=== PATIENT | female | born 1965 | race Caucasian/White ===

== ENCOUNTER 2017-11-11 06:56 | Day surgery (SDC) | payer BC ==
[2017-11-10 10:11] VITALS: BMI 21.4
[~2017-11-11 06:56] MED LIST: LACTATED RINGERS 1,000 ML IV SCH
[2017-11-11 07:12] VITALS: RESP 18; TEMP 98.3
[2017-11-11] MEDS ORDERED: LACTATED RINGERS 1,000 ML IV ONE ×4 (07:14)
[2017-11-11] MEDS ORDERED: PROPOFOL 10 MG/ML 20 ML VIAL IV ONE (07:52)
[2017-11-11] MEDS ORDERED: GLUCAGON 1 MG/ML VIAL ONE (07:52)
[2017-11-11] MEDS ORDERED: LIDOCAINE 1% INJ 10MG/ML (20 ML MDV) ONE (07:52)
--- NOTE | 2017-11-11 08:52 | P.OP ---
Date of Procedure: 11/11/17 Preoperative Diagnosis: Screening colonoscopy Postoperative Diagnosis: Multiple polyps removed, internal hemorrhoids Procedure(s) Performed: Colonoscopy with polypectomy Anesthesia: MAC Surgeon: Suzanne Rivera Estimated Blood Loss (ml): 0 IV fluids (ml): 800 Pathology: other (Colon polyps 6) Condition: stable Disposition: PACU Indications for Procedure: Screening colonoscopy Operative Findings: Multiple polyps four right colon, two at 70 cm, one rectosigmoid, 1 rectum Description of Procedure: Patient was taken to the endoscopy suite and following sedation rectal exam was performed. Patient was noted to have a posterior external skin tag. Patient was noted to have good sphincter tone no masses. Colonoscope was passed through the anus into the rectum. Was passed through the sigmoid colon up to splenic flexure transverse colon hepatic flexure right colon down to the area of the cecum. Circumferential observation mucosa revealed 4 polyps in the right colon. All 4 were removed with snare polypectomy. 2 retrieved 1 was not retrieved it was very small and the last one was burned and not retrieved. As the scope continued to be withdrawn and 2 additional polyps were seen at 70 cm. Both were removed and retrieved with snare polypectomy. The scope continued to be withdrawn and the additional polyp was seen at the rectosigmoid junction which was removed with snare polypectomy and retrieved. The scope was brought down into the rectum where a at final polyp was identified and this was removed with snare polypectomy and retrieved. The scope was retroflexed internal hemorrhoids identified. Impression/plan: 1. Multiple polyps as noted of foreign the right colon to removed and retrieved 1 removed and formulated not retrieved and was not retrieved to a 70 cm both retrieved with the rectosigmoid retrieved one in the rectum retrieved 2. Internal hemorrhoids 3. External posterior skin tag Plan: 1. Await results of pathology on polyps would recommend repeat scope in 6 months to 1 year secondary to the multiple polyps 2. Conservative management of hemorrhoids
--- NOTE | 2017-11-11 08:53 | P.DS ---
Providers Attending physician: Suzanne Rivera Primary care physician: Stated None Plan - Discharge Summary New Discharge Prescriptions: No Action ALPRAZolam [Xanax] 0.5 mg PO QID PRN PRN Reason: Anxiety Bisoprolol-Hctz 2.5-6.25 mg [Ziac 2.5-6.25 MG] 1 each PO DAILY Acetaminophen-Codeine 300-30mg [Tylenol w/codeine #3] 1 each PO Q4H PRN #20 tablet PRN Reason: Pain Ibuprofen [Motrin] 600 mg PO Q8HR PRN #30 tab PRN Reason: Pain Solodyn 65 mg PO DAILY Spironolactone 50 mg PO DAILY Discharge Medication List ALPRAZolam [Xanax] 0.5 mg PO QID PRN 04/16/14 [History] Acetaminophen-Codeine 300-30mg [Tylenol w/codeine #3] 1 each PO Q4H PRN #20 tablet 04/16/14 [Rx] Bisoprolol-Hctz 2.5-6.25 mg [Ziac 2.5-6.25 MG] 1 each PO DAILY 04/16/14 [History ] Ibuprofen [Motrin] 600 mg PO Q8HR PRN #30 tab 04/16/14 [Rx] Solodyn 65 mg PO DAILY 11/10/17 [History] Spironolactone 50 mg PO DAILY 11/10/17 [History] Follow up Appointment(s)/Referral(s): Suzanne Rivera MD [STAFF PHYSICIAN] - 1 Week Activity/Diet/Wound Care/Special Instructions: Do not drive today Discharge Disposition: HOME SELF-CARE
[2017-11-11 09:51] VITALS: BP 123/64; PULSE 68
--- NOTE | 2017-11-14 01:19 | CDI ---
Outpatient Documentation Clarification Form Date: 11/14/2017 CDS/Telecommunications Switch Technician Name: Mike Melissa Phone: If any questions, call [facility] [employer] at [phone] Patient Name: Valerie Norman Admit Date: 11/11/2017 Discharge Date: 11/11/2017 ATTENTION: The [facility] Coding Staff appreciate your assistance in clarifying documentation. Please respond to the clarification below the line at the bottom and electronically sign. The [facility] Coding staff will review the response and follow-up if needed. Please note: Queries are made part of the Legal Health Record. If you have any questions, please contact the [employer]. Dear Dr. Rivera, Operative report states colonoscopy with snare polypectomy was performed. Two polyps were excised at 70 cm. Based on your clinical opinion please mention which anatomical location of colon represent 70cm Thank you for your kind consideration. the lesions were believed to be at the distal transverse colon or near the hepatic flexure. MTDD
== END 2017-11-11 10:24 | disposition home or self-care (01) ==
LOC: ORWHC2ENDO 06:56
PROVIDERS: ATTEND Surgery
DX: Z12.11 Encounter for screening for malignant neoplasm of colon (principal); D12.2 Benign neoplasm of ascending colon; D12.3 Benign neoplasm of transverse colon; D12.7 Benign neoplasm of rectosigmoid junction; I10 Essential (primary) hypertension; D12.8 Benign neoplasm of rectum; F41.9 Anxiety disorder, unspecified; K64.8 Other hemorrhoids; L91.8 Other hypertrophic disorders of the skin; Z91.040 Latex allergy status; Z79.1 Long term (current) use of non-steroidal anti-inflammatories (NSAID); Z79.899 Other long term (current) drug therapy; Z83.71 Family history of colonic polyps; Z79.891 Long term (current) use of opiate analgesic
CPT/HCPCS: 88305; 45385; J1610; J2001; J2704

== ENCOUNTER → 2018-08-11 | Outpatient (CLI) | payer BC ==
--- NOTE | 2018-08-12 07:20 | BD ---
EXAMINATION TYPE: Axial Bone Density DATE OF EXAM: 08/11/2018 COMPARISON: NONE CLINICAL HISTORY: Height: 5 FT 7 1/2 IN Weight: 134 FRAX RISK QUESTIONS: RISK FACTORS HISTORY OF: Active: YES Postmenopausal woman: PART HYST AGE 50 MEDICATIONS: Additional Medications: XANAX, FLORCET FOR MIGRAINES, BISOPROLOL HCTZ, SPIRONOLACTONE , SOLODYN FOR ACNE Additional History: EXAM MEASUREMENTS: Bone mineral densitometry was performed using the [employer] System. Bone mineral density as measured about the Lumbar spine is: ----- L1-L4(G/cm2): 1.253 T Score Values are as follows: ----- L2: 0.1 ----- L3: 1.0 ----- L4: 1.0 ----- L1-L4: 0.6 BASELINE Bone mineral density about the R hip (g/cm2): 0.945 Bone mineral density about the L hip (g/cm2): 0.986 T Score values are as follows: -----R Neck: -0.7 -----L Neck: -0.4 -----R Total: -1.2 -----L Total: -0.8 BASELINE IMPRESSION: No evidence for osteoporosis or osteopenia. NOTE: T-SCORE=SD OF THE YOUNG ADULT MEAN.
== END | disposition home or self-care (01) ==
LOC: RADBDWWP 16:26
PROVIDERS: ATTEND Family Medicine
DX: Z13.820 Encounter for screening for osteoporosis (principal); Z78.0 Asymptomatic menopausal state
CPT/HCPCS: 77080

== ENCOUNTER 2019-02-17 09:33 | Day surgery (SDC) | payer BC ==
--- NOTE | 2019-02-17 07:56 | P.GSHP ---
History of Present Illness H&P Date: 02/17/19 CHIEF COMPLAINT: Colon screen HISTORY OF PRESENT ILLNESS: The patient is a 53-year-old female who presents for colon screen. Lower endoscopy was offered for further evaluation and management. PAST MEDICAL HISTORY: Please see list. PAST SURGICAL HISTORY: Please see list. MEDICATIONS: Please see list. ALLERGIES: Please see list. SOCIAL HISTORY: No illicit drug use FAMILY HISTORY: No reports of Crohn disease or ulcerative colitis. REVIEW OF ORGAN SYSTEMS: CONSTITUTIONAL: No reports of fevers or chills. PHYSICAL EXAM: VITAL SIGNS: Stable GENERAL: Well-developed pleasant in no acute distress. HEENT: No scleral icterus. Extraocular movements grossly intact. Moist buccal mucosa. NECK: Supple without lymphadenopathy. CHEST: Unlabored respirations. Equal bilateral excursions. CARDIOVASCULAR: Regular rate and rhythm. Distal 2+ pulses. ABDOMEN: Soft, nontender, nondistended. MUSCULOSKELETAL: No clubbing, cyanosis, or edema. ASSESSMENT: 1. Colon screen. PLAN: 1. Recommend proceeding with a lower endoscopy Past Medical History Past Medical History: Hyperlipidemia, Hypertension Additional Past Medical History / Comment(s): Hx of irregular heartbeat 20 yrs ago, no problems since., History of Any Multi-Drug Resistant Organisms: None Reported Past Surgical History: Hysterectomy, Tonsillectomy Additional Past Surgical History / Comment(s): COLONOSCOPY Past Anesthesia/Blood Transfusion Reactions: No Reported Reaction Smoking Status: Never smoker - Past Family History Mother Family Medical History: No Reported History Medications and Allergies Home Medications Medication Instructions Recorded Confirmed Type ALPRAZolam [Xanax] 0.5 mg PO QID PRN 04/16/14 02/15/19 History Acetaminophen-Codeine 300-30mg 1 each PO Q4H PRN #20 tablet 04/16/14 02/15/19 Rx [Tylenol w/codeine #3] Bisoprolol-Hctz 2.5-6.25 mg [Ziac 1 each PO DAILY 04/16/14 02/15/19 History 2.5-6.25 MG] Spironolactone 75 mg PO BID 11/10/17 02/15/19 History Minocycline [Minocin] 50 mg PO BID 02/15/19 02/15/19 History Rosuvastatin [Crestor] 10 mg PO DAILY 02/15/19 02/15/19 History Allergies Allergy/AdvReac Type Severity Reaction Status Date / Time latex Allergy Itching Verified 02/15/19 12:15 enviromental allergies AdvReac Unknown Uncoded 02/15/19 12:15
[~2019-02-17 09:33] MED LIST changes: +LIDOCAINE 1% 20 ML VIAL (10MG/ML) FOR IV START INTRADERMA PRN
[2019-02-17 10:06] VITALS: TEMP 98.3
[2019-02-17] MEDS ORDERED: PROPOFOL 10 MG/ML 20 ML VIAL IV ONE (11:09)
[2019-02-17] MEDS ORDERED: LIDOCAINE 1% INJ 10MG/ML (20 ML MDV) ONE (11:09)
--- NOTE | 2019-02-17 11:37 | P.PCN ---
Date of Procedure: 02/17/19 Description of Procedure: PREOPERATIVE DIAGNOSIS: Personal history of colon polyps. POSTOPERATIVE DIAGNOSIS: Personal history of colon polyps. Multiple tubular adenomas throughout the colon. OPERATION: Colonoscopy to the ileocecal valve and appendiceal orifice. Colonoscopy with multiple cold forceps biopsies. SURGEON: Raquel Ibrahim MD. ANESTHESIA: MAC. INDICATIONS: The patient is a 53-year-old female who presents for colonoscopy screening. Last colonoscopy 1 year ago with multiple high-risk polyps in adenomas removed. Benefits and risks were described and informed consent was obtained. DESCRIPTION OF PROCEDURE: The patient had undergone Suprep. She had been brought into the operating room and laid in the left lateral decubitus position. After adequate intravenous sedation, the rectum was examined with 2% lidocaine jelly. Small external hemorrhoids were encountered. The rectal tone was within normal limits. No lesions were palpated in the rectal vault. An Olympus colonoscope was advanced until the ileocecal valve and appendiceal orifice were clearly viewed. The prep was good with visualization of the mucosal folds. The scope was removed with visualization of each mucosal fold. No scattered diverticulosis was encountered. Multiple colonic polyps were found and cold forcep biopsy. No evidence of focal colitis was found. Retroflexion of the scope demonstrated grade 1 internal hemorrhoids without active bleeding or inflammation. The colon was desufflated. The patient had tolerated the procedure well. Withdrawal time was over 6 minutes. FINDINGS: Aronchick preparation quality scale (1-5) Internal hemorrhoids, grade 1 External hemorrhoids, grade 2. No arteriovenous malformations. No scattered diverticulosis Removal of 4 polyps from the proximal, mid transverse colon and descending colon: - Cold forceps biopsy at 10 cm from the anal verge x 2, 4 mm polyp, rectum - Cold forceps biopsy at 15 cm from the anal verge, 5 mm polyp, sigmoid colon - Cold forceps biopsy at mid transverse colon, 5 mm polyp. No focal colitis. RECOMMENDATIONS: Given severity of tubular adenomas, recommend repeat colonoscopy 2 years, 2020 Plan - Discharge Summary Discharge Rx Participant: No New Discharge Prescriptions: No Action ALPRAZolam [Xanax] 0.5 mg PO QID PRN PRN Reason: Anxiety Bisoprolol-Hctz 2.5-6.25 mg [Ziac 2.5-6.25 MG] 1 each PO DAILY Acetaminophen-Codeine 300-30mg [Tylenol w/codeine #3] 1 each PO Q4H PRN #20 tablet PRN Reason: Pain Spironolactone 75 mg PO BID Minocycline [Minocin] 50 mg PO BID Rosuvastatin [Crestor] 10 mg PO DAILY Discharge Medication List ALPRAZolam [Xanax] 0.5 mg PO QID PRN 04/16/14 [History] Acetaminophen-Codeine 300-30mg [Tylenol w/codeine #3] 1 each PO Q4H PRN #20 tablet 04/16/14 [Rx] Bisoprolol-Hctz 2.5-6.25 mg [Ziac 2.5-6.25 MG] 1 each PO DAILY 04/16/14 [History] Spironolactone 75 mg PO BID 11/10/17 [History] Minocycline [Minocin] 50 mg PO BID 02/15/19 [History] Rosuvastatin [Crestor] 10 mg PO DAILY 02/15/19 [History] Follow up Appointment(s)/Referral(s): Raquel Ibrahim MD [STAFF PHYSICIAN] - As Needed Patient Instructions/Handouts: Colorectal Polyps (DC) Activity/Diet/Wound Care/Special Instructions: Repeat colonoscopy 2 years, 2020 Discharge Disposition: HOME SELF-CARE
[2019-02-17 11:58] VITALS: BP 132/74; PULSE 56; RESP 16
== END 2019-02-17 12:32 | disposition home or self-care (01) ==
LOC: ORWHC2ENDO 09:33
PROVIDERS: ATTEND Surgery Plastic and Reconstructive Surgery
DX: Z12.11 Encounter for screening for malignant neoplasm of colon (principal); D12.3 Benign neoplasm of transverse colon; Z86.010 Personal history of colon polyps; E78.5 Hyperlipidemia, unspecified; I10 Essential (primary) hypertension; Z91.040 Latex allergy status; K64.4 Residual hemorrhoidal skin tags; F41.9 Anxiety disorder, unspecified; Z79.891 Long term (current) use of opiate analgesic; Z79.899 Other long term (current) drug therapy
CPT/HCPCS: 88305; 45380; J2001; J2704

== ENCOUNTER → 2021-05-23 | Outpatient (CLI) | payer BC ==
--- NOTE | 2021-05-24 12:01 | ECHOF ---
Referral Reason:Cardiac murmur R01.1 MEASUREMENTS -------- HEIGHT: 172.7 cm WEIGHT: 61.2 kg BP: 123/58 RVIDd: 2.7 cm (< 3.3) IVSd: 0.8 cm (0.6 - 1.1) LVIDd: 4.7 cm (3.9 - 5.3) LVPWd: 0.8 cm (0.6 - 1.1) IVSs: 1.3 cm LVIDs: 2.9 cm LVPWs: 1.2 cm LA Diam: 3.5 cm (2.7 - 3.8) Ao Diam: 2.7 cm (2.0 - 3.7) AV Cusp: 2.1 cm (1.5 - 2.6) MV EXCURSION: 16.638 mm (> 18.000) MV EF SLOPE: 122 mm/s (70 - 150) EPSS: 0.2 cm MV E German: 0.91 m/s MV DecT: 307 ms MV A German: 0.39 m/s MV E/A Ratio: 2.30 RAP: 5.00 mmHg RVSP: 28.56 mmHg FINDINGS -------- Resting bradycardia (HR<60bpm). This was a technically adequate study. The left ventricular size is normal. Left ventricular wall thickness is normal. Overall left vent ricular systolic function is normal with, an EF between 60 - 65 %. The right ventricle is normal in size. The left atrium is normal in size. The right atrium is normal in size. Interatrial and interventricular septum intact. The aortic valve is trileaflet, and appears structurally normal. No aortic stenosis or regurgitation. There is trace mitral regurgitation. Mild tricuspid regurgitation present. Right ventricular systolic pressure is normal at < 35 mmHg. Trace/mild (physiologic) pulmonic regurgitation. The aortic root size is normal. Normal inferior vena cava with normal inspiratory collapse consistent with estimated right atrial pre ssure of 5 mmHg. There is no pericardial effusion. CONCLUSIONS -------- 1. The left ventricular size is normal. 2. Left ventricular wall thickness is normal. 3. Overall left ventricular systolic function is normal with, an EF between 60 - 65 %. 4. The aortic valve is trileaflet, and appears structurally normal. No aortic stenosis or regurgitati on. 5. There is trace mitral regurgitation. 6. Mild tricuspid regurgitation present. 7. Trace/mild (physiologic) pulmonic regurgitation. 8. There is no pericardial effusion. BANKING SPECIALIST: Melissa Hope RDCS
== END | disposition home or self-care (01) ==
LOC: RADECHMAIN 16:51
PROVIDERS: ATTEND Family Medicine
DX: I08.8 Other rheumatic multiple valve diseases (principal)
CPT/HCPCS: 93306

== ENCOUNTER → 2023-07-23 | Outpatient (CLI) | payer BC ==
--- NOTE | 2023-07-24 17:22 | MM ---
Reason for Exam: Screening (asymptomatic). Last mammogram was performed 5 year(s) and 0 month(s) ago. Patient History: Menarche at age 13. Patient has no children. Hysterectomy at age 49. Patient used Hormonal Contraceptives for 6 years. Risk Values: Roxanna 5 year model risk: 1.4%. NCI Lifetime model risk: 8.7%. Prior Study Comparison: 08/14/2004 Bilateral Screening Mammogram, [facility]. 12/13/2011 Bilateral Screening Mammogram, [facility]. 08/06/2018 Bilateral Screening Mammogram, [facility]. Tissue Density: The breast tissue is extremely dense which could obscure a lesion on mammography. Findings: Analyzed By CAD. Pattern appears symmetrical and stable. No significant interval change is evident. There is benign spherical calcifications within the left breast. No suspicious groups of microcalcifications, spiculated or lobular masses, architectural distortion or other secondary signs of malignancy are mammographically apparent. Overall Assessment: Benign, BI-RAD 2 Management: Screening Mammogram of both breasts in 1 year. A negative mammogram report should not preclude additional follow up of suspicious palpable abnormalities. Patient should continue monthly self breast exam. A clinical breast exam by your physician is recommended on an annual basis and results should be correlated with mammographic findings. Electronically signed and approved by: Shane Webb D.O. Radiologis
== END | disposition home or self-care (01) ==
LOC: RADMAMWWP 15:53
PROVIDERS: ATTEND Family Medicine
DX: Z12.31 Encounter for screening mammogram for malignant neoplasm of breast (principal)
CPT/HCPCS: 77067